=== PATIENT | male | born 1990 | race Caucasian/White ===

== ENCOUNTER 2021-01-28 11:55 | Emergency (ER) | payer BC, SELFPAY ==
--- NOTE | 2021-01-28 12:20 | ECG_ITS ---
Measurements Intervals [place] Rate: 70 P: -7 CT: 140 QRS: 46 QRSD: 108 T: 7 QT: 367 QTc: 397 Interpretive Statements SINUS RHYTHM INCOMPLETE RIGHT BUNDLE BRANCH BLOCK DELAYED PRECORDIAL R/S TRANSITION VOLTAGE CRITERIA FOR LVH CONSIDER INFERIOR INFARCT, AGE INDETERMINATE ABNORMAL ECG Electronically Signed On 01-28-2021 13:23:06 CDT by Anirudh Christianson D.O.
[2021-01-28] MEDS: SODIUM CHLORIDE 0.9% IV 1,000 ML 999 ML IV CONT (12:35)
[2021-01-28 12:38] VITALS: BP 149/112; PULSE 91; RESP 20; TEMP 36.4; O2SAT 97
[2021-01-28 12:43] VITALS: BP 134/99; PULSE 69; RESP 20; O2SAT 96
[2021-01-28 12:44] LABS: Basophils Absolute Auto 0.02 K/mm3 (0.00-0.10); Basophils Percent Auto 0.2 % (0.0-1.0); Eosinophils Absolute Auto 0.14 K/mm3 (0.02-0.50); Eosinophils Percent Auto 1.4 % (1.0-6.0); Hematocrit 43.8 % (40.0-54.0); Hemoglobin 15.1 g/dL (14.0-18.0); Immature Granulocyte Absolute 0.03 K/mm3 (0.00-0.00); Immature Granulocyte Percent A 0.3 % (0.0-0.0); Lymphocytes Absolute Auto 3.39 K/mm3 (1.10-4.50); Lymphocytes Percent Auto 34.1 % (18.0-42.0); Mean Corpuscular HGB Conc 34.5 g/dL (32.0-36.0); Mean Corpuscular Hemoglobin 30.1 pg (27.0-31.0); Mean Corpuscular Volume 87.4 fL (78.0-102.0); Mean Platelet Volume 10.8 fl (8.7-11.0); Monocytes Absolute Auto 0.64 K/mm3 (0.10-0.90); Monocytes Percent Auto 6.4 % (2.0-11.0); Neutrophils Absolute Auto 5.7 K/mm3 (1.7-7.2); Neutrophils Percent Auto 57.6 % (50.0-70.0); Platelet Count Result 268 K/mm3 (150-420); Red Blood Count 5.01 M/mm3 (4.70-6.10); White Blood Count 9.9 K/mm3 (4.8-10.8)
[2021-01-28 13:00] LABS: Alanine Aminotransferase 29 U/L (16-63); Alkaline Phosphatase 73 U/L (46-116); Anion Gap 13 mmol/L (8-16); Aspartate Amino Transferase 14 U/L (15-37); Bilirubin,Total 0.4 mg/dL (0.00-1.00); Blood Urea Nitrogen 23 mg/dL (7-18); Calcium 8.7 mg/dL (8.5-10.1); Carbon Dioxide 24 mmol/L (21-32); Chloride 105 mmol/L (98-108); Creatine Kinase 355 U/L (39-308); Estimated CRCL calculation 128 ml/min; Estimated Glomerular Filt Rate > 60; Glucose 101 mg/dL (70-99); Magnesium 1.8 mg/dL (1.8-2.4); Osmolality Calculated 297 mOsm/kg (285-295); Potassium 4.2 mmol/L (3.5-5.1); Sodium 142 mmol/L (136-145); Total Protein 7.5 g/dL (6.4-8.2)
[2021-01-28 13:03] LABS: Lactic Acid Reflex 0.5 mmol/L (0.4-2.0)
--- NOTE | 2021-01-28 13:19 | ED.GENADULT ---
HPI - General Adult General Chief complaint: Unspecified Stated complaint: possible dehydration/passed out Monday Source: patient and family History of Present Illness HPI narrative: this is a 30-year-old male presents with some but appears in him to be some weakness and feels like he is dehydrated, patient works in a factory and believes he became overheated this was on Monday approximately 2 days ago currently having some grogginess without confusion no headache no blurry vision no fever chills. The patient has no past medical history takes no medication patient does have a approximately 3 or 4 shots of whiskey along with energy drinks daily. Onset (ago): day(s) Severity: mild Related Data Home Medications Medication Instructions Recorded Confirmed No Home Medications 01/28/21 01/28/21 Allergies Allergy/AdvReac Type Severity Reaction Status Date / Time No Known Allergies Allergy Verified 01/28/21 13:22 Review of Systems Review of Systems: All systems reviewed & are unremarkable except as noted in HPI and below PMFSH Past Medical History Medical History Patient denies medical problems Social History Social History Gender identity (if verbalized by the patient): Male Exam Const: General: no acute distress and alert Orientation/consciousness: patient oriented x3 HENMT: Head: normal to inspection Eyes: Conjunctivae: conjunctivae normal Pupils: Equal, round and reactive pupils present Neck: Neck: normal visual inspection, no lymphadenopathy and no meningeal signs Chest: Chest palpation & inspection: normal inspection of the chest Resp: Effort & Inspection: normal respiratory effort Auscultation: clear to auscultation bilaterally Cardio: Rate: regular rate Rhythm: regular rhythm GI: GI Palp: Yes Soft to palpation Urinary Catheter: Urinary Catheter: patent and draining Back/Spine/Pelvis: Back: no CVA tenderness Neuro: General: patient oriented x3 Extrem: General: normal to inspection and no pedal edema Psych: Appearance: grossly normal Mental Status: mental status grossly normal Affect: normal affect Course Course Emergency Course: reassessment of patient feels some improved with IV hydration labs reviewed with patient advised follow-up with his primary care physician. Vital Signs Vital signs: Vital Signs Temperature 36.4 C 01/28/21 12:38 Pulse Rate 91 01/28/21 12:38 Respiratory Rate 20 01/28/21 12:38 Blood Pressure 149/112 H 01/28/21 12:38 Pulse Oximetry 97 01/28/21 12:38 Temperature 36.4 C 01/28/21 12:38 Pulse Rate 69 01/28/21 12:43 Respiratory Rate 20 01/28/21 12:43 Blood Pressure 134/99 H 01/28/21 12:43 Pulse Oximetry 96 01/28/21 12:43 Medical Decision Making Vital Signs Vital Signs: Vital Signs Temperature 36.4 C 01/28/21 12:38 Pulse Rate 91 01/28/21 12:38 Respiratory Rate 01/28/21 12:38 Blood Pressure 149/112 H 01/28/21 12:38 Pulse Oximetry 97 01/28/21 12:38 Temperature 36.4 C 01/28/21 12:38 Pulse Rate 69 01/28/21 12:43 Respiratory Rate 01/28/21 12:43 Blood Pressure 134/99 H 01/28/21 12:43 Pulse Oximetry 96 01/28/21 12:43 Lab Data Result diagrams: 01/28/21 12:37 01/28/21 12:37 Labs: Lab Results 01/28/21 01/28/21 01/28/21 Range/Units 12:37 12:37 12:37 WBC 9.9 (4.8-10.8) K/mm3 RBC 5.01 (4.70-6.10) M/mm3 Hgb 15.1 (14.0-18.0) g/dL Hct 43.8 (40.0-54.0) % MCV 87.4 (78.0-102.0) fL MCH 30.1 (27.0-31.0) pg MCHC 34.5 (32.0-36.0) g/dL RDW 12.0 (11.6-14.4) % Plt Count 268 (150-420) K/mm3 MPV 10.8 (8.7-11.0) fl Immature Gran % (Auto) 0.3 H (0.0-0.0) % Neut % (Auto) 57.6 (50.0-70.0) % Lymph % (Auto) 34.1 (18.0-42.0) % [place] % (Auto) 6.4 (2.0-11.0) % Eos % (Auto) 1.4 (1.0-6.0)
[2021-01-28 13:32] VITALS: BP 137/90; PULSE 73; RESP 20; TEMP 36.7; O2SAT 97
== END 2021-01-28 13:49 | disposition home or self-care (01) ==
PROVIDERS: Emergency Provider Emergency Medicine
DX: T67.5XXA Heat exhaustion, unspecified, initial encounter (principal)
CPT/HCPCS: 36415; 80053; 82550; 83605; 83735; 85025; 93005; 96360; 99283; J7030

== ENCOUNTER 2024-01-07 11:23 | Observation (INO) | payer OTHER, SELFPAY ==
[2024-01-07] VITALS (10 sets, daily range): BP systolic 140–160; BP diastolic 92–107; PULSE 67–99; RESP 12–18; TEMP 36.3–36.6; O2SAT 97–99; BMI 29.8
--- NOTE | 2024-01-07 11:46 | ED.GENADULT ---
HPI - General Adult General Chief complaint: Upper Respiratory Infection Stated complaint: cold symptoms. Time Seen by Provider: 01/07/24 11:46 History of Present Illness HPI narrative: 33-year-old white male complains of nausea and vomiting last 5 days. Planes of runny nose cough when he throws up. Not able to keep anything down. Denies sore throat shortness of breath difficulty breathing any other pain besides his throat that is a little sore when he throws up. Denies any rash or itching bleeding or bruising lumps or bumps or swelling dizziness or lightheadedness. Denies any other complaints. Past medical history is fairly healthy white male no significant past medical history. Related Data Home Medications Medication Instructions Recorded Confirmed No Home Medications 01/28/21 01/07/24 Allergies Allergy/AdvReac Type Severity Reaction Status Date / Time No Known Allergies Allergy Verified 01/07/24 11:25 Review of Systems Review of Systems: All systems reviewed & are unremarkable except as noted in HPI and below PMFSH Past Medical History Medical History Patient denies medical problems Social History Social History Gender identity (if verbalized by the patient): Male Exam Narrative: White male patient with no apparent distress.? Head normocephalic, atraumatic.? Eyes conjunctiva pink sclera nonicteric.? Extraocular movements are intact.? Ears externally normal.? Oropharynx is clear with moist mucous membranes without exudates.? Neck is supple nontender no lymphadenopathy.? Back is nontender.? Lungs are clear.? Heart is Tachycardic,regular rate and rhythm without murmurs gallops or rubs.? Chest wall nontender.? Back is nontender. Abdomen is soft and nontender no hepatosplenomegaly or masses no CVA tenderness no abdominal bruits.? Extremities no cyanosis clubbing or edema.? Skin is warm and dry without rashes or lesions.? Neurological patient is alert and oriented x4.? Motor and sensory grossly intact.? Gait is normal. Course Vital Signs Vital signs: Vital Signs Temperature 36.3 C L 01/07/24 11:23 Pulse Rate 99 01/07/24 11:23 Respiratory Rate 17 01/07/24 11:23 Blood Pressure 142/96 H 01/07/24 11:23 Pulse Oximetry 98 01/07/24 11:23 Oxygen Delivery Room Air 01/07/24 11:23 Temperature 36.3 C L 01/07/24 11:23 Pulse Rate 87 01/07/24 13:02 Respiratory Rate 17 01/07/24 13:02 Blood Pressure 152/98 H 01/07/24 13:02 Pulse Oximetry 98 01/07/24 13:02 Oxygen Delivery Room Air 01/07/24 13:02 Medical Decision Making MDM Narrative Medical decision making narrative: ? Patient placed in room: 1 ? History and physical was performed. Potassium 3.2 BUN 44 creatinine 1.91, sodium 133 total bilirubin 1.3, total protein 8.8 GFR 41 rest of CMP was normal WBCs 17, hemoglobin 18.2 rest of CBC was normal. Negative COVID flu and RSV Independent Historian: External Source Review: Differential Dx includes but not limited to: COVID flu RSV dehydration electrolyte imbalance Medications were Reviewed: no medications Medications given: Zofran 4 mg IV bolus of normal saline 1 L, then K-Dur 40 mg p.o. and normal saline at 500 cc an hour with 20 mEq K rider. 2nd dose of Zofran 4 mg IV. Independently Interpreted by me: labs independently interpreted by me. Shared decision Making: Evaluation was discussed with patient all questions were asked and answered patient agreed with plan. Social Situation Impacting Patients Care: Patient discussed with Mann Paiz LEATHER REPAIRER: admit to observation nausea vomiting dehydration acute kidney injury general medical floor DISCHARGE DIAGNOSIS: Nausea vomiting mild dehydration acute kidney injury DISPOSITION: discharge home CONDITION AT DISCHARGE: stable improved Vital Signs Vital Signs: Vital
[2024-01-07] MEDS: ONDANSETRON INJ 4 MG/2 ML VIAL IV PUSH ×2 (12:02→13:26)
[2024-01-07] MEDS: SODIUM CHLORIDE 0.9% IV 1,000 ML 999 ML IV CONT (12:02)
[2024-01-07 12:23] LABS: Hemoglobin 18.2 g/dL (14.0-18.0); Mean Corpuscular HGB Conc 35.7 g/dL (32-36); Mean Corpuscular Hemoglobin 29.8 pg (27.0-31.0); Mean Corpuscular Volume 83.6 fL (78.0-102.0); Mean Platelet Volume 11.3 fl (8.7-11.0); Platelet Count Result 344 K/mm3 (150-420); Red Cell Distribution Width 11.7 % (11.6-14.4)
[2024-01-07 12:36] LABS: Alanine Aminotransferase 35 U/L (16-63); Albumin Level 4.6 g/dL (3.4-5.0); Alkaline Phosphatase 78 U/L (46-116); Anion Gap 13 mmol/L (4-12); Aspartate Amino Transferase 22 U/L (15-37); Bilirubin,Total 1.3 mg/dL (0.00-1.00); Blood Urea Nitrogen 44 mg/dL (7-18); Calcium 9.5 mg/dL (8.5-10.1); Carbon Dioxide 30 mmol/L (21-32); Chloride 90 mmol/L (98-108); Estimated Glomerular Filt Rate 41; Glucose 130 mg/dL (70-99); Osmolality Calculated 289 mOsm/kg (285-295); Potassium 3.2 mmol/L (3.5-5.1); Sodium 133 mmol/L (136-145); Total Protein 8.8 g/dL (6.4-8.2)
[2024-01-07 13:04] LABS: SARS-CoV-2 RNA PCR Negative (Negative)
[2024-01-07 13:05] LABS: Influenza A QL RT-PCR Negative (Negative); Influenza B QL RT-PCR Negative (Negative); RSV RNA, RT-PCR Negative (Negative)
[2024-01-07] MEDS: SODIUM CHLORIDE 0.9% IV 1,000 ML 500 ML IV CONT (13:20)
[2024-01-07] MEDS: KCL 20 MEQ/SW 100 ML 100 ML 50 MEQ IVPB (13:21)
[2024-01-07] MEDS: POTASSIUM CHLORIDE 20 MEQ ER TABLET 40 MEQ PO (13:29)
--- NOTE | 2024-01-07 13:55 | PC.NURSE ---
Patient came to unit in w/c from ED and was admitted to room 202. Patient able to transfer from w/c to bed without assist. 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 Information documented in patient's history as other respiratory issues. Patient educated on use of call light, bed controls, visiting hours and general hospital policies.
--- NOTE | 2024-01-07 14:58 | PC.NURSE ---
Patient requested vladimir crackers and peanut butter. Patient prescribed a regular diet, so typewriter tester gave them to patient. Will monitor patient's ability to keep food down.
[2024-01-07] MEDS: SODIUM CHLORIDE 0.9% IV 1,000 ML 100 ML IV CONT (15:30)
[2024-01-07] MEDS: cloNIDine HCL 0.1 MG TABLET PO (16:22)
[2024-01-07] MEDS: DOCUSATE SODIUM 100 MG CAPSULE PO (16:22)
[2024-01-08] VITALS: BP 137/94; PULSE 79; RESP 16; TEMP 36.4; O2SAT 97
[2024-01-08] MEDS: SODIUM CHLORIDE 0.9% IV 1,000 ML 100 ML IV CONT (01:35)
[2024-01-08 05:46] LABS: Basophils Absolute Auto 0.04 K/mm3 (0.00-0.10); Basophils Percent Auto 0.3 % (0.0-1.0); Eosinophils Absolute Auto 0.08 K/mm3 (0.02-0.50); Eosinophils Percent Auto 0.6 % (1.0-6.0); Hematocrit 41.4 % (40.0-54.0); Hemoglobin 14.5 g/dL (14.0-18.0); Immature Granulocyte Absolute 0.08 K/mm3 (0.00-0.00); Immature Granulocyte Percent A 0.6 % (0.0-0.0); Lymphocytes Absolute Auto 3.88 K/mm3 (1.10-4.50); Lymphocytes Percent Auto 27.2 % (18.0-42.0); Mean Corpuscular Hemoglobin 29.9 pg (27.0-31.0); Mean Corpuscular Volume 85.4 fL (78.0-102.0); Mean Platelet Volume 11.4 fl (8.7-11.0); Monocytes Absolute Auto 1.16 K/mm3 (0.10-0.90); Monocytes Percent Auto 8.1 % (2.0-11.0); Neutrophils Absolute Auto 9.01 K/mm3 (1.70-7.20); Neutrophils Percent Auto 63.2 % (50.0-70.0); Platelet Count Result 232 K/mm3 (150-420); Red Blood Count 4.85 M/mm3 (4.70-6.10); Red Cell Distribution Width 11.6 % (11.6-14.4); White Blood Count 14.3 K/mm3 (4.8-10.8)
[2024-01-08 05:49] LABS: Anion Gap 6 mmol/L (4-12); Blood Urea Nitrogen 25 mg/dL (7-18); Calcium 8.2 mg/dL (8.5-10.1); Carbon Dioxide 30 mmol/L (21-32); Chloride 99 mmol/L (98-108); Estimated CRCL calculation 90 ml/min; Estimated Glomerular Filt Rate > 60; Glucose 102 mg/dL (70-99); Osmolality Calculated 284 mOsm/kg (285-295); Potassium 3.2 mmol/L (3.5-5.1); Sodium 135 mmol/L (136-145)
[2024-01-08 08:00] VITALS: BP 139/93; PULSE 79; RESP 14; TEMP 36.4; O2SAT 96
[2024-01-08] MEDS: PANTOPRAZOLE SODIUM IV 40 MG VIAL IV PUSH (09:06)
--- NOTE | 2024-01-08 09:21 | PM.SD2 ---
Same Day Admit/Disch: HPI History of Present Illness Chief complaint: DEHYDRATION NAUSEA VOMITING Narrative: Dixon Mock is a 33 year old male Chief complaint: Upper Respiratory Infection Stated complaint: cold symptoms. Time Seen by Provider: 01/07/24 11:46 History of Present Illness HPI narrative: 33-year-old white male complains of nausea and vomiting last 5 days. Planes of runny nose cough when he throws up. Not able to keep anything down. Denies sore throat shortness of breath difficulty breathing any other pain besides his throat that is a little sore when he throws up. Denies any rash or itching bleeding or bruising lumps or bumps or swelling dizziness or lightheadedness. Denies any other complaints. Past medical history is fairly healthy white male no significant past medical history. [facility] Past Medical History Medical History Patient denies medical problems Social History Social History Smoking packs per day: 0 Smoking cigarettes per day: 0.0 Smoking status: Current every day smoker Tobacco type: cigars Second hand tobacco smoke exposure: Yes Alcohol intake: current Drinks per week: 30 Substance use: current Substance use type: marijuana Do You Feel Safe in your Home?: Yes Lack of Transportation: No Lack of Food: Never True Current Housing: I Have Housing Concerned About Future Housing: No Difficulty Paying Gas/Electric Bills: No Difficulty Paying for Meds: No Currently Unemployed: No Education: Trade/Vocational Certificate Difficulty w/ Childcare or Family Care: No Gender identity (if verbalized by the patient): Male Spiritual care concerns: No Same Day Admit/Disch: Med Pre-admit Medications Home Medications Medication Instructions Recorded Confirmed Type ondansetron 4 mg disintegrating 4 mg PO Q8H PRN nausea and 01/08/24 Rx tablet vomiting #10 tabs Review of Systems Review of Systems nausea and vomiting All systems reviewed & are unremarkable except as noted in HPI and below Exam Const: General: cooperative, healthy appearing and acute distress HENMT: Head: normal to inspection Mouth: Yes Normal oral and palatal mucosa present Eyes: General: appearance normal, both eyes and all related structures Neck: Neck: normal visual inspection, full ROM and no lymphadenopathy Chest: Chest palpation & inspection: normal inspection of the chest Resp: Effort & Inspection: normal respiratory effort and able to speak in complete sentences Auscultation: clear to auscultation bilaterally GI: Inspection: normal to inspection Auscultation: normal bowel sounds Back/Spine/Pelvis: Back: no CVA tenderness Skin: General skin exam: normal color and no rashes or lesions noted Neuro: General: oriented to person, oriented to place, oriented to time and patient oriented x3 Extrem: General: normal to inspection, full ROM and capillary refill normal Right upper extremity: normal to inspection, full ROM and normal capillary refill Right lower extremity: normal to inspection, full ROM and normal capillary refill Psych: Appearance: grossly normal and well kempt Speech and movement: Normal speech and movement present Thought process: Normal thought process present DS: Data Data Completed and Pending Labs on day of discharge: Labs from last 24 hours 01/08/24 01/07/24 05:26 12:16 WBC 14.3 H 17.0 H RBC 4.85 6.10 Hgb 14.5 18.2 H Hct 41.4 51.0 MCV 85.4 83.6 MCH 29.9 29.8 MCHC 35.0 35.7 RDW 11.6 11.7 Plt Count 232 344 MPV 11.4 H 11.3 H Immature Gran % (Auto) 0.6 H Neut % (Auto) 63.2 Lymph % (Auto) 27.2 [place] % (Auto) 8.1 Eos % (Auto) 0.6 L Baso % (Auto) 0.3 Lymph # (Auto) 3.88 [place] # (Auto) 1.16 H Eos # (Auto) 0.08 Baso # (Auto) 0.04 Abs Immat Gran (auto) 0.08 H Absolute Neuts (auto) 9.01 H
[2024-01-08] MEDS: POTASSIUM CHLORIDE 20 MEQ PACKET (FOR LIQUID) 40 MEQ PO (09:51)
--- NOTE | 2024-01-08 10:47 | PC.NURSE ---
Pt discharged to home with spouse. VSS. Discharge instructions given to pt and spouse regarding new medication Zofran. What it is for, when to take it and how much and how often to take it. Pt and spouse verbalize understanding. Pt escorted to the car via WC.
--- NOTE | 2024-01-09 10:20 | PC.NURSE ---
Discharge call back attempted no answer
--- NOTE | 2024-01-11 13:09 | PC.NURSE ---
Discharge call back, unable to complete, wrong number listed
== END 2024-01-08 10:00 | disposition home or self-care (01) ==
LOC: CHSED 13:21 → CHS2ND 13:36
PROVIDERS: Nurse Practitioner Family; Admitting Provider Internal Medicine; Emergency Provider Emergency Medicine; Visit Provider Internal Medicine
DX: N17.9 Acute kidney failure, unspecified (principal); E86.0 Dehydration; R11.2 Nausea with vomiting, unspecified; Z20.822 Contact with and (suspected) exposure to COVID-19
CPT/HCPCS: 36415; 80048; 80053; 85025; 85027; 87637; 96361; 96365; 96366; 96375; 96376; 99285; A9270; C9113; G0378; J2405; J3480; J7030

== ENCOUNTER 2024-04-12 16:19 | Emergency (ER) | payer OTHER, SELFPAY ==
[2024-04-12] VITALS (16 sets, daily range): BP systolic 151–165; BP diastolic 89–118; PULSE 51–95; RESP 18–20; TEMP 36.4–36.5; O2SAT 96–100
--- NOTE | 2024-04-12 16:29 | ED.NAVMDI ---
HPI - Nausea/Vomiting/Diarrhea General Chief complaint: Nausea/Vomiting/Diarrhea Stated complaint: NAUSEA/VOMITING Source: patient History of Present Illness HPI Narrative: patient drove himself to the emergency room complaining of nausea, vomiting that started sand buffer. Patient report lot of vomiting. He report 1 episode of loose stool. He denies any fever, chills, chest pain, abdominal pain, back pain or urinary symptoms. Patient is telling me that he had similar symptoms 2 months ago for unknown reason. Patient uses marijuana daily, smokes cigarettes occasionally and drink alcohol occasionally. He does not have medicine at home. Related Data Allergies Allergy/AdvReac Type Severity Reaction Status Date / Time No Known Allergies Allergy Verified 01/07/24 11:25 Review of Systems Review of Systems: All systems reviewed & are unremarkable except as noted in HPI and below PMFSH Past Medical History Medical History Patient denies medical problems Social History Social History Smoking packs per day: 0 Smoking cigarettes per day: 0.0 Smoking status: Current every day smoker Tobacco type: cigars Second hand tobacco smoke exposure: Yes Alcohol intake: current Drinks per week: 30 Substance use: current Substance use type: marijuana Do You Feel Safe in your Home?: Yes Lack of Transportation: No Lack of Food: Never True Current Housing: I Have Housing Concerned About Future Housing: No Difficulty Paying Gas/Electric Bills: No Difficulty Paying for Meds: No Currently Unemployed: No Education: Trade/Vocational Certificate Difficulty w/ Childcare or Family Care: No Gender identity (if verbalized by the patient): Male Spiritual care concerns: No Exam Narrative: General appearance: Well-developed, well-nourished , looks uncomfortable, holding vomiting bag in hands Skin: Normal color Head: Normocephalic, nontraumatic Eyes: Clear conjunctiva ENT: Oropharynx normal, ears normal, nose normal Neck: Supple, nontender Chest and respiratory: Airway patent, no respiratory distress, no accessory muscle use Heart: Regular rate/rhythm Abdomen: Soft, nontender, no organomegaly, quiet bowel sounds Vascular: Normal peripheral pulses, normal capillary refill. Musculoskeletal: Normal range of motion, nontender back Neurologic: Alert and oriented ?3, INFORMATION TECHNOLOGY AUDIT MANAGER is normal as tested, no gross motor deficit Course Vital Signs Vital signs: Vital Signs Pulse Rate 90 04/12/24 16:19 Respiratory Rate 18 04/12/24 16:19 Blood Pressure 156/118 H 04/12/24 16:19 Pulse Oximetry 100 04/12/24 16:19 Oxygen Delivery Room Air 04/12/24 16:19 Temperature 36.4 C L 04/12/24 17:04 Pulse Rate 95 04/12/24 16:35 Respiratory Rate 20 04/12/24 16:35 Blood Pressure 165/108 H 04/12/24 18:16 Pulse Oximetry 96 04/12/24 18:16 Oxygen Delivery Room Air 04/12/24 16:35 MDM - Nausea/Vomiting/Diarrhea MDM Narrative Medical decision making narrative: patient came with vomiting Vital signs showed blood pressure of 156/118 Physical examination showed a patient with dry heaving and vomiting Differential diagnosis viral gastroenteritis, stress related, marijuana induced hyperemesis. Patient report having similar symptoms 2 months ago. Blood workup today showed no significant abnormalities COVID test came back negative Urinalysis showed no evidence of infection Patient received 2 L of normal saline, 4 mg of Zofran IV, 50 mg Benadryl IV, 10 mg of Reglan IV with slight improvement came for subsequently patie
[2024-04-12] MEDS: SODIUM CHLORIDE 0.9% IV 2,000 ML 999 ML IV CONT (16:48)
[2024-04-12] MEDS: METOCLOPRAMIDE HCL INJ 10 MG/2 ML VIAL IV PUSH (16:50)
[2024-04-12] MEDS: diphenhydrAMINE HCl INJ 50 MG/ML VIAL IV PUSH (16:50)
[2024-04-12] MEDS: ONDANSETRON INJ 4 MG/2 ML VIAL IV PUSH (16:50)
[2024-04-12 16:51] LABS: Basophils Absolute Auto 0.04 K/mm3 (0.00-0.10); Basophils Percent Auto 0.3 % (0.0-1.0); Eosinophils Absolute Auto 0.03 K/mm3 (0.02-0.50); Eosinophils Percent Auto 0.2 % (1.0-6.0); Hemoglobin 16.3 g/dL (14.0-18.0); Immature Granulocyte Absolute 0.06 K/mm3 (0.00-0.00); Immature Granulocyte Percent A 0.5 % (0.0-0.0); Lymphocytes Percent Auto 14.4 % (18.0-42.0); Mean Corpuscular HGB Conc 35.4 g/dL (32-36); Mean Corpuscular Hemoglobin 30.7 pg (27.0-31.0); Mean Corpuscular Volume 86.6 fL (78.0-102.0); Monocytes Absolute Auto 0.43 K/mm3 (0.10-0.90); Monocytes Percent Auto 3.4 % (2.0-11.0); Neutrophils Absolute Auto 10.18 K/mm3 (1.70-7.20); Neutrophils Percent Auto 81.2 % (50.0-70.0); Platelet Count Result 293 K/mm3 (150-420); Red Blood Count 5.31 M/mm3 (4.70-6.10); Red Cell Distribution Width 11.9 % (11.6-14.4); White Blood Count 12.5 K/mm3 (4.8-10.8)
[2024-04-12 16:59] LABS: Alanine Aminotransferase 41 U/L (16-63); Albumin Level 4.5 g/dL (3.4-5.0); Alkaline Phosphatase 93 U/L (46-116); Anion Gap 10 mmol/L (4-12); Aspartate Amino Transferase 16 U/L (15-37); Bilirubin,Total 0.7 mg/dL (0.00-1.00); Blood Urea Nitrogen 15 mg/dL (7-18); Calcium 9.8 mg/dL (8.5-10.1); Carbon Dioxide 29 mmol/L (21-32); Chloride 104 mmol/L (98-108); Estimated CRCL calculation 95 ml/min; Estimated Glomerular Filt Rate > 60; Glucose 118 mg/dL (70-99); Lipase 31 U/L (16-77); Osmolality Calculated 297 mOsm/kg (285-295); Potassium 3.7 mmol/L (3.5-5.1); Sodium 143 mmol/L (136-145); Total Protein 8.3 g/dL (6.4-8.2)
--- NOTE | 2024-04-12 17:05 | PC.NURSE ---
covid swab sample sent to lab
[2024-04-12 17:45] LABS: SARS-CoV-2 RNA PCR Negative (Negative)
[2024-04-12 17:47] LABS: Influenza A QL RT-PCR Negative (Negative); Influenza B QL RT-PCR Negative (Negative); RSV RNA, RT-PCR Negative (Negative)
[2024-04-12] MEDS: LORazepam INJ (*CRX) 2 MG/ML VIAL 1 MG IV PUSH ×2 (17:58→19:20)
--- NOTE | 2024-04-12 18:25 | PC.NURSE ---
HERE AND STATES PT CONTINUES SMOKING THC AND HAS STARTED USING A NEW VAPING PEN.
--- NOTE | 2024-04-12 18:59 | PC.NURSE ---
REPORT TO TERESA CHANG
== END 2024-04-12 20:16 | disposition home or self-care (01) ==
PROVIDERS: Emergency Provider Emergency Medicine
DX: F12.10 Cannabis abuse, uncomplicated (principal); R11.10 Vomiting, unspecified; F17.210 Nicotine dependence, cigarettes, uncomplicated; Z20.822 Contact with and (suspected) exposure to COVID-19
CPT/HCPCS: 36415; 80053; 83690; 85025; 87637; 96361; 96374; 96375; 96376; 99284; J1200; J2060; J2405; J2765; J7030